=== PATIENT | female | born 1990 | race African-American/Black ===

== ENCOUNTER 2020-05-26 20:54 | Emergency (ER) | payer OTHER, SELFPAY ==
[2020-05-26 20:57] VITALS: BP 118/66; PULSE 68; RESP 16; TEMP 37; O2SAT 98; BMI 25.6
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
[2020-05-26] MEDS: Acetaminophen 325 MG TABLET 975 MG PO (22:28)
[2020-05-26 22:29] VITALS: BP 123/75; PULSE 71; RESP 18; TEMP 37.1; O2SAT 99
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
== END 2020-05-27 00:11 | disposition home or self-care (01) ==
PROVIDERS: Emergency Provider Emergency Medicine Emergency Medical Services; PCP Internal Medicine
DX: S09.90XA Unspecified injury of head, initial encounter (principal); S00.83XA Contusion of other part of head, initial encounter; S80.211A Abrasion, right knee, initial encounter; Y04.2XXA Assault by strike against or bumped into by another person, initial encounter; Y93.89 Activity, other specified; Y92.019 Unspecified place in single-family (private) house as the place of occurrence of the external cause; Y99.9 Unspecified external cause status
CPT/HCPCS: 70450; 70486; 99284